=== PATIENT | female | born 1965 | race African-American/Black ===

== ENCOUNTER 2020-08-24 10:51 | Emergency (ER) | payer OTHER ==
[~2020-08-24] VITALS: Ht 172.7 cm; Wt 85.3 kg
[2020-08-24] MEDS ORDERED: amlodipine PO (11:04)
[2020-08-24] MEDS ORDERED: ZOLOFT PO (11:05)
[2020-08-24] MEDS ORDERED: SYNTHROID PO (11:05)
[2020-08-24] MEDS ORDERED: PROTONIX40 M2 PO (11:05)
[2020-08-24] MEDS ORDERED: ALPRAZOLAM PO (11:06)
[2020-08-24] MEDS ORDERED: NORCO5 PO ×4 (12:34→13:05)
[2020-08-24] MEDS ORDERED: MOBIC15 MG PO (12:34)
[2020-08-24 12:57] VITALS: BP 123/71
--- NOTE | 2020-08-26 07:45 | EKG ---
[address] [address] ELECTROCARDIOGRAM REPORT Name: AYLEEN WAITE [id number] Admission: 08/24/20 Attend Phys: Discharge: 08/24/20 Date of : 63 Report #: [id number] [facility] ED Test Date: 2020-08-24 Test Time: 11:34:46 Pat Name: AYLEEN WAITE Department: Room: Gender: F Hand Cultivator: RENAE : 1965 Requested By: Fouzia Womack Order Number: [id number] MD: Sunday Choudhary Measurements Intervals [place] Rate: 55 P: 37 ND: 182 QRS: 4 QRSD: 93 T: 63 QT: 415 QTc: 397 Interpretive Statements Normal Sinus Rhythm No previous ECG available for comparison Electronically Signed On 08-26-2020 7:45:36 CDT by Sunday Choudhary [email or web address] <ELECTRONICALLY SIGNED> By: Sunday Choudhary MD, [facility] 08/26/20 0745 1134 1134 Sunday Choudhary MD, FACC /EPI
== END 2020-08-24 12:57 | disposition home or self-care (01) ==
LOC: ER 10:51
DX: S20.211A Contusion of right front wall of thorax, initial encounter (principal); S70.11XA Contusion of right thigh, initial encounter; Z79.899 Other long term (current) drug therapy; Z88.5 Allergy status to narcotic agent; V87.8XXA Person injured in other specified noncollision transport accidents involving motor vehicle (traffic), initial encounter; Y93.55 Activity, bike riding; Y92.488 Other paved roadways as the place of occurrence of the external cause; Y99.8 Other external cause status